=== PATIENT | female | born 1955 | race Caucasian/White ===

== ENCOUNTER → 2016-07-05 | Outpatient (CLI) | payer BC ==
[2016-07-05 09:33] LABS: CHLORIDE,CL 104 mmol/L (98-110); SODIUM,NA 139 mmol/L (136-146)
== END ==
LOC: MW.CHIM 08:35
PROVIDERS: ATTEND Internal Medicine
DX: R51 Headache (principal)
CPT/HCPCS: 36415; 80053

== ENCOUNTER → 2016-07-06 | Outpatient (CLI) | payer BC ==
[~2016-07-06] MED LIST: Gadobutrol 10 mMOL/10 ML SDV IVPUSH STA
--- NOTE | 2016-07-07 08:50 | MR ---
EXAMINATION: MRI of the brain with and without contrast. TECHNIQUE: Multiplanar and multisequence imaging of the brain without and following the administrati on of 6 mL of Gadavist. A pituitary protocol was used. HISTORY: Headache. FINDINGS: Cerebral hemispheres and the deep nuclei are without hemorrhage, mass, edema, gliosis, enhancement o r atrophy. No extraaxial collections or hemorrhage. Ventricular system is of normal size and confi guration without hydrocephalus. The brainstem and cerebellum are without hemorrhage, mass, edema, gl iosis, enhancement or atrophy. Carotid basilar artery flow voids are intact. Venous sinuses are patent. The otomastoid airspaces are clear. No internal auditory canal or cereb ellopontine angle masses or enhancement. The paranasal sinuses are clear. Globes, optic nerves, orbital apices, optic chiasm, optic tracts, and visual cortices are unremarka ble. The pituitary and sella turcica are unremarkable. The infundibulum is midline. No hypoenhanci ng components noted to suggest a microadenoma. No meningeal enhancement. The craniocervical junction is unremarkable without Chiari malformation. No siderosis or evidence of vascular malformation. The calvarium is intact. IMPRESSION: 1. No acute intracranial findings. 2. No evidence of a pituitary microadenoma.
== END ==
LOC: MW.MRI 14:58
PROVIDERS: ATTEND Internal Medicine
DX: R51 Headache (principal)
CPT/HCPCS: 70553; A9585

== ENCOUNTER 2017-05-19 09:24 | Emergency (ER) | payer BC ==
[2017-05-19] MEDS ORDERED: Lidocaine/EPINEPHrine/Tetracaine Soln 1 ML TOP ONE (09:56)
[2017-05-19] MEDS ORDERED: Diphtheria,Pertussis(Acell),Tetanus Vaccine 0.5 ML Syringe IM ONE (10:17)
[2017-05-19] MEDS ORDERED: Acetaminophen 325 MG Tab PO ONE (10:19)
--- NOTE | 2017-05-19 10:45 | CT ---
EXAMINATION: Non contrast CT head. Coronal and sagittal reformats. HISTORY: Pain FINDINGS: No evidence of intra or extra axial hemorrhage, mass, midline shift, hydrocephalus or edema. No hyp oattenuation changes in the major vascular territories to suggest acute infarct. No abnormal intracranial calcifications are detected. No evidence of substantial vascular calcificat ions. Paranasal sinuses and mastoid air cells are well aerated without substantial findings. The orbits an d globes are symmetric. Pituitary fossa appears unremarkable. Calvarium is intact. No evidence of skull fracture. IMPRESSION: No acute intracranial findings.
--- NOTE | 2017-05-19 10:53 | EDM.PDOC ---
ED HPI GENERAL MEDICAL PROBLEM - General Chief Complaint: Upper Extremity Injury/Pain Stated Complaint: PATIENT FELL Time Seen by Provider: 05/19/17 09:33 Source of Information: Reports: Patient History Limitations: Reports: No Limitations - History of Present Illness INITIAL COMMENTS - FREE TEXT/NARRATIVE: History of present illness: []Patient fell on the ice yesterday evening. He hit the back of her head and landed on her left side bruising her left thigh, left knee and left elbow. Small laceration on her left elbow that is continuing to bleed. She is not having visual changes, nausea or vomiting and denies a loss of consciousness after the fall. Review of systems: As per history of present illness and below otherwise all systems reviewed and negative. Past medical history: As per history of present illness and as reviewed below otherwise noncontributory. Surgical history: As per history of present illness and as reviewed below otherwise noncontributory. Social history: No reported history of drug or alcohol abuse. Family history: As per history of present illness and as reviewed below otherwise noncontributory. Physical exam: General: Well developed, well nourished in NAD HEENT: Atraumatic, normocephalic, pupils reactive, negative for conjunctival pallor or scleral icterus, mucous membranes moist, throat clear, neck supple, nontender, trachea midline. Lungs: Clear to auscultation, breath sounds equal bilaterally, chest nontender. Heart: S1S2, regular, negative for clicks, rubs, or JVD. Abdomen: Soft, nondistended, nontender. Negative for masses or hepatosplenomegaly. Negative for costovertebral tenderness. Pelvis: Stable nontender. Genitourinary: Deferred. Rectal: Deferred. Extremities: Left lateral upper thigh with a 10 x 10 cm ecchymotic area, left knee with inferior lateral ecchymosis she is full range of motion no effusion noted. Left elbow with a small skin tear that is oozing blood over the olecranon. negative for cords or calf pain. Neurovascular unremarkable. Neuro: Awake, alert, oriented. Cranial nerves II through XII unremarkable. Cerebellum unremarkable. Motor and sensory unremarkable throughout. Exam nonfocal. Diagnostics: []CT head and neck elbow x-ray are negative Therapeutics: []Tetanus status updated, Tylenol given as requested, wound dressed and cleaned cleaned and then dressed with Surgicel Impression: []Fall with contusion of left thigh, left knee skin tear of left elbow and concussion Plan: []Patient declines any option medications offered. Will take extra strength Tylenol. Patient to follow-up with Dr. Arora as needed. Definitive disposition and diagnosis as appropriate pending reevaluation and review of above. Arm Pain Score (Numeric/FACES): 3 - Related Data Allergies Allergy/AdvReac Type Severity Reaction Status Date / Time No Known Allergies Allergy Verified 01/18/16 15:47 Home Meds: Home Meds Butalb/Acetaminophen/Caffeine [Mupgun-Iiayrbmf-Ceae 50-325-40] 2 tab PO DAILY [History] Carisoprodol [Soma] 350 mg PO BID PRN 01/10/16 [History] Estradiol 1 mg PO DAILY 01/10/16 [History] Levothyroxine Sodium [Levoxyl] 88 mcg PO DAILY 01/10/16 [History] ZOLMitriptan [Zolmitriptan Odt] 2.5 mg PO BID PRN 01/10/16 [History] cycloSPORINE [Restasis] 1 each OP BID 01/10/16 [History] LORazepam 0.5 mg PO BID PRN 02/25/16 [History] Lovastatin 20 mg PO DAILY 02/25/16 [History] rOPINIRole [Requip] 0.5 mg PO BEDTIME PRN 02/25/16 [History] Pregabalin [Lyrica] 75 mg PO DAILY 03/01/16 [History] Acetaminophen [Tylenol Extra Strength] 1,000 mg PO Q6H #100 tablet 03/03/16 [Rx] Aspirin 325 mg PO BID #60 tablet 03/03/16 [Rx] Celecoxib [CeleBREX] 200 mg PO DAILY #60 cap 03/03/16 [Rx] Docusate Sodium [Colace] 100 mg PO BID #60 cap 03/03/16 [Rx] oxyCODONE 5 - 10 mg PO Q4H PRN #80 tablet 03/03/16 [Rx] oxyCODONE ER [OxyCONTIN] 20 mg PO Q12HR #30 tab.er 03/03/16 [Rx] Past Medical History HEENT History: Reports: None Cardiovascular History: Reports: High Cholesterol, Hypertension Respiratory History: Reports: None Gastrointestinal History: Reports: None Genitourinary History: Reports: None 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: Reports: Endometriosis, Musculoskeletal History: Reports: Back Pain, Chronic, Fibromyalgia, Osteoarthritis Neurological History: Reports: Migraines Psychiatric History: Reports: Anxiety, Depression Endocrine/Metabolic History: Reports: Hypothyroidism Hematologic History: Reports: Blood Transfusion(s) Other Hematologic History: hx blood transfusion after hysterectomy Immunologic History: Reports: None Other Oncologic History: hx melanoma to rt thumb Dermatologic History: Reports: None - Infectious Disease History Infectious Disease History: Reports: Chicken Pox, Measles, MRSA, Shingles - Past Surgical History Musculoskeletal Surgical History: Reports: Knee Replacement, Other (See Below) Social & Family History - Family History Family Medical History: Noncontributory Respiratory: Reports: Asthma OBGYN: Reports: Neurological: Reports: CVA Endocrine/Metabolic: Reports: Other (See Below) Other Endocrine/Metabolic Family History: DM, type unknown Oncologic: Reports: Breast, Leukemia - Tobacco Use Smoking Status *Q: Never Smoker Second Hand Smoke Exposure: No - Caffeine Use Caffeine Use: Reports: Coffee, Tea - Alcohol Use Days Per Week of Alcohol Use: 0 - Recreational Drug Use Recreational Drug Use: No Drug Use in Last 12 Months: No Review of Systems - Review of Systems Review Of Systems: See Below (See history of present illness) ED EXAM, GENERAL - Physical Exam Exam: See Below (See history of present illness) Course - Vital Signs Last Recorded V/S: Last Vital Signs Temp 97.8 F 05/19/17 09:33 Pulse 94 05/19/17 09:33 Resp 18 05/19/17 09:33 BP 166/84 H 05/19/17 09:33 Pulse Ox 99 05/19/17 09:33 - Orders/Labs/Meds Orders: Active Orders 24 hr Category Date Time Status Vaccines to be Administered [RC] PER UNIT ROUTINE Care 05/19/17 10:17 Active Meds: Medications Discontinued Medications Generic Name Dose Route Start Last Admin Trade Name Camacho PRN Reason Stop Dose Admin Acetaminophen 650 mg 05/19/17 10:19 05/19/17 10:51 Tylenol PO 05/19/17 10:20 Not Given NOW ONE Diphtheria/Tetanus/Acell Pertussis 0.5 ml 05/19/17 10:17 05/19/17 10:50 Adacel IM 01/11/18 10:18 0.5 ml .ONCE ONE Administration Lidocaine/Tetracaine 1 ml 05/19/17 09:56 05/19/17 10:02 Sowmya TONEY 05/19/17 09:57 1 ml ONETIME ONE Administration Departure - Departure Time of Disposition: 11:13 Disposition: Home, Self-Care 01 Condition: Good Clinical Impression: Contusion of left thigh, initial encounter, Contusion of left knee, initial encounter Fall Qualifiers: Encounter type: initial encounter Qualified Code(s): W19.XXXA - Unspecified fall, initial encounter Skin tear of elbow without complication Qualifiers: Encounter type: initial encounter Laterality: left Qualified Code(s): S51.012A - Laceration without foreign body of left elbow, initial encounter - Discharge Information Referrals: Jf Arora DO [Primary Care Provider] - 1 Week Forms: ED Department Discharge Additional Instructions: The following information is given to patients seen in the emergency department who are being discharged to home. This information is to outline your options for follow-up care. We provide all patients seen in our emergency department with a follow-up referral. The need for follow-up, as well as the timing and circumstances, are variable depending upon the specifics of your emergency department visit. If you don't have a primary care physician on staff, we will provide you with a referral. We always advise you to contact your personal physician following an emergency department visit to inform them of the circumstance of the visit and for follow-up with them and/or the need for any referrals to a consulting specialist. The emergency department will also refer you to a specialist when appropriate. This referral assures that you have the opportunity for follow-up care with a specialist. All of these measure are taken in an effort to provide you with optimal care, which includes your follow-up. Under all circumstances we always encourage you to contact your private physician who remains a resource for coordinating your care. When calling for follow-up care, please make the office aware that this follow-up is from your recent emergency room visit. If for any reason you are refused follow-up, please contact the [facility] Emergency Department at and asked to speak to the emergency department charge nurse. The primary care physician as needed, Tylenol or Motrin for pain heat or ice for comfort. Leave dressing on elbow on for 24 hours do not get wet. Return if symptoms worsen or change. - My Orders Last 24 Hours: My Active Orders 05/19/17 10:17 Vaccines to be Administered [RC] PER UNIT ROUTINE - Assessment/Plan Last 24 Hours: My Active Orders 05/19/17 10:17 Vaccines to be Administered [RC] PER UNIT ROUTINE
--- NOTE | 2017-05-19 10:53 | CR ---
EXAMINATION: Left elbow HISTORY: Fall COMPARISON: 04/08/2010 TECHNIQUE: 3 views FINDINGS/IMPRESSION: There is no acute osseous abnormality, dislocation, or fracture. Bone mineraliza tion and joint spaces appear preserved. No joint effusion. Mild dorsal proximal forearm soft tissue s welling.
[2017-05-19 11:23] VITALS: BP 132/87
== END 2017-05-19 11:24 | disposition home or self-care (01) ==
LOC: MW.ED 09:24
DX: S06.0X0A Concussion without loss of consciousness, initial encounter (principal); S51.012A Laceration without foreign body of left elbow, initial encounter; S70.12XA Contusion of left thigh, initial encounter; S80.02XA Contusion of left knee, initial encounter; Z79.82 Long term (current) use of aspirin; Z79.899 Other long term (current) drug therapy; Z23 Encounter for immunization; W00.0XXA Fall on same level due to ice and snow, initial encounter
CPT/HCPCS: 70450; 70450-26; 73080-26-LT; 73080-LT; 90471; 90715; 99284; 99284-25

== ENCOUNTER 2018-07-01 16:40 | Emergency (ER) | payer BC ==
--- NOTE | 2018-07-01 17:02 | EDM.PDOC ---
ED HPI GENERAL MEDICAL PROBLEM - General Chief Complaint: ENT Problem Stated Complaint: SORE THROAT Time Seen by Provider: 07/01/18 16:46 - History of Present Illness INITIAL COMMENTS - FREE TEXT/NARRATIVE: HISTORY AND PHYSICAL: History of present illness: Patient is a 63-year-old white female presents concern of sore throat and swollen lymph nodes and left ear pain she denies any fever chills nausea vomiting or other complaints. Review of systems: As per history of present illness and below otherwise all systems reviewed and negative. Past medical history: As per history of present illness and as reviewed below otherwise noncontributory. Surgical history: As per history of present illness and as reviewed below otherwise noncontributory. Social history: No reported history of drug or alcohol abuse. Family history: As per history of present illness and as reviewed below otherwise noncontributory. Physical exam: HEENT: Atraumatic, normocephalic, pupils reactive, negative for conjunctival pallor or scleral icterus, mucous membranes moist, throat injected, neck supple , nontender, trachea midline. Left TM incompletely visualized secondary to cerumen some shotty submandibular and precervical adenopathy noted Lungs: Clear to auscultation, breath sounds equal bilaterally, chest nontender. Heart: S1S2, regular, negative for clicks, rubs, or JVD. Abdomen: Soft, nondistended, nontender. Negative for masses or hepatosplenomegaly. Negative for costovertebral tenderness. Pelvis: Stable nontender. Genitourinary: Deferred. Rectal: Deferred. Extremities: Atraumatic, negative for cords or calf pain. Neurovascular unremarkable. Neuro: Awake, alert, oriented. Cranial nerves II through XII unremarkable. Cerebellum unremarkable. Motor and sensory unremarkable throughout. Exam nonfocal. Diagnostics: Deferred Therapeutics: None Impression: 1 pharyngitis #2 left otalgia Definitive disposition and diagnosis as appropriate pending reevaluation and review of above. - Related Data Allergies Allergy/AdvReac Type Severity Reaction Status Date / Time No Known Allergies Allergy Verified 07/01/18 16:52 Home Meds: Home Meds Butalb/Acetaminophen/Caffeine [Vqveba-Bgunhqeo-Djxd 50-325-40] 2 tab PO DAILY [History] Carisoprodol [Soma] 350 mg PO BID PRN 01/10/16 [History] Estradiol 1 mg PO DAILY 01/10/16 [History] Levothyroxine Sodium [Levoxyl] 88 mcg PO DAILY 01/10/16 [History] ZOLMitriptan [Zolmitriptan Odt] 2.5 mg PO BID PRN 01/10/16 [History] cycloSPORINE [Restasis] 1 each OP BID 01/10/16 [History] LORazepam 0.5 mg PO BID PRN 02/25/16 [History] Lovastatin 20 mg PO DAILY 02/25/16 [History] rOPINIRole [Requip] 0.5 mg PO BEDTIME PRN 02/25/16 [History] Pregabalin [Lyrica] 75 mg PO DAILY 03/01/16 [History] Acetaminophen [Tylenol Extra Strength] 1,000 mg PO Q6H #100 tablet 03/03/16 [Rx] Aspirin 325 mg PO BID #60 tablet 03/03/16 [Rx] Celecoxib [CeleBREX] 200 mg PO DAILY #60 cap 03/03/16 [Rx] Docusate Sodium [Colace] 100 mg PO BID #60 cap 03/03/16 [Rx] oxyCODONE 5 - 10 mg PO Q4H PRN #80 tablet 03/03/16 [Rx] oxyCODONE ER [OxyCONTIN] 20 mg PO Q12HR #30 tab.er 03/03/16 [Rx] Past Medical History HEENT History: Reports: None Cardiovascular History: Reports: High Cholesterol, Hypertension Respiratory History: Reports: None Gastrointestinal History: Reports: None Genitourinary History: Reports: None [employer] History: Reports: Endometriosis, Musculoskeletal History: Reports: Back Pain, Chronic, Fibromyalgia, Osteoarthritis Neurological History: Reports: Migraines Psychiatric History: Reports: Anxiety, Depression Endocrine/Metabolic History: Reports: Hypothyroidism Hematologic History: Reports: Blood Transfusion(s) Other Hematologic History: hx blood transfusion after hysterectomy Immunologic History: Reports: None Other Oncologic History: hx melanoma to rt thumb Dermatologic History: Reports: None - Infectious Disease History Infectious Disease History: Reports: Chicken Pox, Measles, MRSA, Shingles - Past Surgical History Musculoskeletal Surgical History: Reports: Knee Replacement, Other (See Below) Social & Family History - Family History Family Medical History: Noncontributory Respiratory: Reports: Asthma OBGYN: Reports: Neurological: Reports: CVA Endocrine/Metabolic: Reports: Other (See Below) Other Endocrine/Metabolic Family History: DM, type unknown Oncologic: Reports: Breast, Leukemia - Caffeine Use Caffeine Use: Reports: Coffee, Tea ED ROS GENERAL - Review of Systems Review Of Systems: ROS reveals no pertinent complaints other than HPI. ED EXAM, GENERAL - Physical Exam Exam: See Below (See dictation) Departure - Departure Time of Disposition: 17:01 Disposition: Home, Self-Care 01 Condition: Good Clinical Impression: Pharyngitis, Otalgia - Discharge Information Referrals: Mora Merchant MD [Primary Care Provider] - Additional Instructions: The following information is given to patients seen in the emergency department who are being discharged to home. This information is to outline your options for follow-up care. We provide all patients seen in our emergency department with a follow-up referral. The need for follow-up, as well as the timing and circumstances, are variable depending upon the specifics of your emergency department visit. If you don't have a primary care physician on staff, we will provide you with a referral. We always advise you to contact your personal physician following an emergency department visit to inform them of the circumstance of the visit and for follow-up with them and/or the need for any referrals to a consulting specialist. The emergency department will also refer you to a specialist when appropriate. This referral assures that you have the opportunity for followup care with a specialist. All of these measure are taken in an effort to provide you with optimal care, which includes your followup. Under all circumstances we always encourage you to contact your private physician who remains a resource for coordinating your care. When calling for followup care, please make the office aware that this follow-up is from your recent emergency room visit. If for any reason you are refused follow-up, please contact the [facility] emergency department at and asked to speak to the emergency department charge nurse. Augmentin is prescribed Motrin/Tylenol as directed push fluids follow primary medical doctor 1-2 days or return as needed as discussed
[2018-07-01 22:03] VITALS: BP 142/82
== END 2018-07-01 17:10 | disposition home or self-care (01) ==
LOC: MW.ED 16:40
DX: J02.9 Acute pharyngitis, unspecified (principal); H92.02 Otalgia, left ear; E78.00 Pure hypercholesterolemia, unspecified; I10 Essential (primary) hypertension; F41.9 Anxiety disorder, unspecified; F32.9 Major depressive disorder, single episode, unspecified; E03.9 Hypothyroidism, unspecified; Z79.899 Other long term (current) drug therapy; Z79.82 Long term (current) use of aspirin
CPT/HCPCS: 99282; 99283

== ENCOUNTER 2021-11-20 08:39 | Emergency (ER) | payer BC ==
[2021-11-20] MEDS ORDERED: Ondansetron 4 MG/2 ML SDV IVPUSH ONE (08:58)
[2021-11-20] MEDS ORDERED: Ketorolac 30 MG/ML SDV IVPUSH ONE (08:58)
[2021-11-20] MEDS ORDERED: HYDROmorphone 1 MG/ML Syringe IVPUSH ONE (08:58)
[2021-11-20] MEDS ORDERED: Sodium Chloride 0.9% 1,000 ML IV ONE (08:58)
[2021-11-20 10:04] LABS: CARBON DIOXIDE,CO2 23.6 mmol/L (21.0-32.0); POTASSIUM,K 3.9 mmol/L (3.5-5.1)
[2021-11-20 10:59] VITALS: BP 159/82; PULSE 76
== END 2021-11-20 10:58 | disposition home or self-care (01) ==
LOC: MW.ED 08:39
DX: M54.6 Pain in thoracic spine (principal); E03.9 Hypothyroidism, unspecified; I10 Essential (primary) hypertension; Z79.899 Other long term (current) drug therapy; Z90.710 Acquired absence of both cervix and uterus; Z90.49 Acquired absence of other specified parts of digestive tract
CPT/HCPCS: 36415; 74176; 80053; 81001; 83690; 83735; 85025; 96361; 96374; 96375; 99284; J1170; J1885; J2405; J7030

== ENCOUNTER 2022-05-29 18:04 | Emergency (ER) | payer BC ==
[2022-05-29] MEDS ORDERED: Sodium Chloride 0.9% 2.5 ML Syringe FLUSH PRN (18:47)
[2022-05-29] MEDS ORDERED: Ketorolac 30 MG/ML SDV IVPUSH ONE (18:47)
[2022-05-29] MEDS ORDERED: Sodium Chloride 0.9% 10 ML Syringe FLUSH PRN (18:47)
[2022-05-29] MEDS ORDERED: HYDROmorphone 1 MG/ML Syringe IVPUSH ONE (19:26)
[2022-05-29 19:40] LABS: CARBON DIOXIDE,CO2 26.7 mmol/L (21.0-32.0); POTASSIUM,K 3.3 mmol/L (3.5-5.1)
[2022-05-29 20:33] VITALS: BP 140/95; PULSE 77
== END 2022-05-29 20:31 | disposition home or self-care (01) ==
LOC: MW.ED 18:04
DX: M54.6 Pain in thoracic spine (principal); I10 Essential (primary) hypertension; Z79.899 Other long term (current) drug therapy; Z86.16 Personal history of COVID-19; Z90.49 Acquired absence of other specified parts of digestive tract; Z90.710 Acquired absence of both cervix and uterus
CPT/HCPCS: 36415; 71101; 80053; 84484; 85025; 93005; 96374; 96375; 99284; J1170; J1885; J3360; J3490; 93010

== ENCOUNTER 2022-09-26 19:34 | Emergency (ER) | payer BC ==
[2022-09-26] MEDS ORDERED: Ketorolac 30 MG/ML SDV IM ONE (20:40)
[2022-09-26] MEDS ORDERED: Diazepam 2 MG Tab PO ONE (20:40)
[2022-09-26] MEDS ORDERED: Aspirin 81 MG Tab.Chew PO ONE (20:45)
[2022-09-26] MEDS ORDERED: Sodium Chloride 0.9% 10 ML Syringe FLUSH PRN (20:45)
[2022-09-26] MEDS ORDERED: Sodium Chloride 0.9% 2.5 ML Syringe FLUSH PRN (20:45)
[2022-09-26] MEDS ORDERED: Sodium Chloride 0.9% 20 ML SDV IV PRN (20:45)
[2022-09-26] MEDS ORDERED: Sodium Chloride 0.9% 1,000 ML IV ONE (20:45)
[2022-09-26 21:12] LABS: BASOPHILS PERCENT AUTO 0.8 % (0.0-1.5); EOSINOPHILS ABSOLUTE AUTO 0.1 K/uL (0.0-0.7); EOSINOPHILS PERCENT AUTO 2.8 % (0.0-7.0); HEMATOCRIT 35.5 % (36.0-46.0); HEMOGLOBIN 12.5 g/dL (12.0-16.0); LYMPHOCYTES ABSOLUTE AUTO 1.3 K/uL (0.6-2.4); LYMPHOCYTES PERCENT AUTO 31.7 % (16.0-40.0); MEAN CORPUSCULAR HEMOGLOBIN 30.4 pg (27.0-32.0); MEAN CORPUSCULAR HGB CONC 35.2 g/dL (31.0-37.0); MEAN CORPUSCULAR VOLUME 86.4 fL (80.0-98.0); MONOCYTES ABSOLUTE AUTO 0.3 K/uL (0.0-0.8); MONOCYTES PERCENT AUTO 7.1 % (0.0-15.0); NEUTROPHILS ABSOLUTE AUTO 2.3 K/uL (1.4-5.7); NEUTROPHILS PERCENT AUTO 57.6 % (48.0-80.0); NRBC ABSOLUTE 0 K/uL; PLATELET COUNT,PLT 155 K/uL (150-400); RED BLOOD CELL COUNT 4.11 M/uL (4.30-5.90); WHITE BLOOD CELL COUNT,WBC 3.94 K/uL (4.0-11.0)
[2022-09-26 21:46] LABS: CARBON DIOXIDE,CO2 26.2 mmol/L (21.0-32.0); CREATININE 0.9 mg/dL (0.6-1.0); POTASSIUM,K 3.5 mmol/L (3.5-5.1)
[2022-09-26 21:55] LABS: CALCIUM 9.1 mg/dL (8.5-10.1)
[2022-09-26] MEDS ORDERED: Iopamidol 755 MG/ML 500 ML Multipack Bottle IVPUSH ONE (21:55)
[2022-09-26] MEDS ORDERED: HYDROmorphone 1 MG/ML Syringe IVPUSH ONE (21:57)
[2022-09-27] MEDS ORDERED: Orphenadrine 60 MG/2 ML Inj IM ONE (00:10)
[2022-09-27 00:22] VITALS: BP 152/83; PULSE 76
== END 2022-09-27 00:22 | disposition home or self-care (01) ==
LOC: MW.ED 19:34
DX: M62.830 Muscle spasm of back (principal); I10 Essential (primary) hypertension; E03.9 Hypothyroidism, unspecified; Z79.899 Other long term (current) drug therapy; Z86.16 Personal history of COVID-19
CPT/HCPCS: 36415; 71260; 80048; 84484; 85025; 93005; 96361; 96372; 96374; 99285; A9270; J1170; J1885; J2360; J3490; J7050; Q9967; 93010; 99284

== ENCOUNTER 2023-08-05 20:57 | Emergency (ER) | payer BC ==
[2023-08-05] MEDS: LORazepam 1 MG Tab PO ONE (22:00)
[2023-08-05 22:02] VITALS: BP 160/80; PULSE 98
== END 2023-08-05 22:01 | disposition home or self-care (01) ==
LOC: MW.ED 20:57
DX: F41.9 Anxiety disorder, unspecified (principal); I10 Essential (primary) hypertension; E03.9 Hypothyroidism, unspecified; Z90.710 Acquired absence of both cervix and uterus; Z79.899 Other long term (current) drug therapy; Z75.8 Other problems related to medical facilities and other health care
CPT/HCPCS: 99283; A9270

== ENCOUNTER 2023-09-07 21:39 | Emergency (ER) | payer BC ==
[2023-09-07] MEDS: LORazepam 1 MG Tab PO ONE (22:14)
[2023-09-07 22:24] LABS: BASOPHILS ABSOLUTE AUTO 0.03 K/uL (0.00-0.20); BASOPHILS PERCENT AUTO 0.8 % (0.0-1.0); EOSINOPHILS ABSOLUTE AUTO 0.08 K/uL (0.00-0.45); HEMATOCRIT 33.9 % (37.0-47.0); IMMATURE GRAN ABSOLUTE AUTO 0.02 K/uL (0.00-0.05); IMMATURE GRAN PERCENT AUTO 0.5 % (0.0-0.4); LYMPHOCYTES ABSOLUTE AUTO 1.27 K/uL (1.00-4.80); LYMPHOCYTES PERCENT AUTO 32.3 % (24.0-44.0); MEAN CORPUSCULAR HEMOGLOBIN 30.8 pg (28.0-32.0); MEAN CORPUSCULAR HGB CONC 35.4 g/dL (32.0-36.0); MEAN CORPUSCULAR VOLUME 87.1 fL (83.0-99.0); MONOCYTES ABSOLUTE AUTO 0.29 K/uL (0.00-0.80); MONOCYTES PERCENT AUTO 7.4 % (0.0-8.0); NEUTROPHILS ABSOLUTE AUTO 2.24 K/uL (1.80-7.70); PLATELET COUNT,PLT 173 K/uL (150-400); RED BLOOD CELL COUNT 3.89 M/uL (4.10-5.30); WHITE BLOOD CELL COUNT,WBC 3.93 K/uL (3.9-11.3)
[2023-09-07 22:30] VITALS: PULSE 93
[2023-09-07 22:49] LABS: ALBUMIN 3.2 g/dL (3.4-5.0); BILIRUBIN TOTAL 0.2 mg/dL (0.2-1.0); CALCIUM 8.7 mg/dL (8.5-10.1); CARBON DIOXIDE,CO2 24.2 mmol/L (21.0-32.0); CREATININE 0.8 mg/dL (0.6-1.0); EST CRCL DRUG DOSING (CG) 62.13 mL/min; POTASSIUM,K 3.4 mmol/L (3.5-5.1); PROTEIN TOTAL,TP 6.4 g/dL (6.4-8.2)
[2023-09-07 23:02] VITALS: BP 146/87
== END 2023-09-07 23:06 | disposition home or self-care (01) ==
LOC: MW.ED 21:39
DX: I10 Essential (primary) hypertension (principal); E78.00 Pure hypercholesterolemia, unspecified; E03.9 Hypothyroidism, unspecified; Z79.899 Other long term (current) drug therapy; Z75.8 Other problems related to medical facilities and other health care
CPT/HCPCS: 36415; 70450; 80053; 84484; 85025; 93005; 99284; A9270; 93010; 99283